=== PATIENT | male | born 1950 | race Caucasian/White ===

== ENCOUNTER → 2016-12-31 | Outpatient (CLI) | payer OTHER | LOC: GMAH 10:34 | PROVIDERS: ATTEND Family Medicine | DX: E78.2 Mixed hyperlipidemia (principal); Z12.5 Encounter for screening for malignant neoplasm of prostate | CPT/HCPCS: 84443; 84550; G0103 ==

== ENCOUNTER 2017-04-29 08:14 | Day surgery (SDC) | payer MEDICARE, OTHER ==
[~2017-04-29 08:14] MED LIST: LACTATED RINGERS 1,000 ML ONE; MIDAZOLAM INJ 2 MG/2 ML VIAL ONE; fentaNYL CITRATE INJ 50 MCG/ML AMP ONE
--- NOTE | 2017-04-29 08:30 | OP ---
DATE OF PROCEDURE: 04/29/17 PREPROCEDURE DIAGNOSIS: 1. History of polyps. 2. Surveillance colonoscopy. POSTPROCEDURE DIAGNOSIS: 1. Colonic polyps. 2. Diverticulosis. 3. Internal hemorrhoids. PROCEDURE: 1. Colonoscopy. SURGEON: Joe Dallas MD SEDATION: The patient was sedated via IV propofol by the Anesthesia Department. COMPLICATIONS: No immediate complications. CONSENT: Prior to the procedure, risks, benefits and alternatives to the therapy were discussed with the patient. The risks included bleeding, infection , perforation and . The patient agreed to the procedure and signed a consent. Preprocedure anesthesia assessment and examination revealed no contraindication to sedation. Airway examination demonstrated a Mallampati class 2, ASA grade assessment type 2. Throughout the procedure, the patient's blood pressure, pulse and oxygen saturation were monitored continuously. PROCEDURE: The patient was placed in the left lateral decubitus position and a rectal examination was performed. The rectal examination was within normal limits. The Olympus colonoscope was passed in the anus, rectum, traversing the colon to the level of the cecum as identified by the appendiceal orifice. The scope was retracted and the mucosa was visualized. The entirety of the exam was performed with direct visualization. Retroflexion was performed in the rectum. Preparation quality was good. The withdrawal time was greater than 6 minutes. The patient tolerated the procedure well. FINDINGS: 1. Three polyps were seen in the ascending colon. The polyps ranged from 5 to 7 mm in size. All polyps were resected through cold snare resection. The polyps were retrieved. No bleeding during or at the end of resection. 2. Diverticulosis was seen in the sigmoid and descending colon. 3. Large internal hemorrhoids were seen in the rectum through retroflexion. IMPRESSION: 1. Three colonic polyps, resected and retrieved. 2. Mild to moderate diverticulosis in the sigmoid colon. 3. Large, non-bleeding internal hemorrhoids. RECOMMENDATION: 1. Return home. 2. Restart diet. 3. Restart medications as prior. 4. Followup pathology results. 5. Repeat colonoscopy for surveillance in the next three years given the number of polyps if evidence of adenomatous tissue found. 6. Findings were discussed with the patient and family members. 7. Return to my clinic (Dr. Blanton) in case development of any GI symptoms or any additional questions. #[id number] [facility]
[2017-04-29 09:16] VITALS: BP 149/86; TEMP 98; O2SAT 97
[2017-04-29] MEDS ORDERED: LIDOCAINE 1% 10 ML VIAL INJ ONE (10:00)
[2017-04-29] MEDS ORDERED: PROPOFOL 200 MG/20 ML VIAL IV ONE (10:00)
== END 2017-04-29 09:10 | disposition home or self-care (01) ==
LOC: AMB 08:14
PROVIDERS: ATTEND Internal Medicine Gastroenterology
DX: Z12.11 Encounter for screening for malignant neoplasm of colon (principal); D12.2 Benign neoplasm of ascending colon; K57.30 Diverticulosis of large intestine without perforation or abscess without bleeding; K64.8 Other hemorrhoids; E78.00 Pure hypercholesterolemia, unspecified; I10 Essential (primary) hypertension; K21.9 Gastro-esophageal reflux disease without esophagitis; J44.9 Chronic obstructive pulmonary disease, unspecified; F17.200 Nicotine dependence, unspecified, uncomplicated; E66.9 Obesity, unspecified; Z86.010 Personal history of colon polyps; Z68.33 Body mass index [BMI] 33.0-33.9, adult; Z79.899 Other long term (current) drug therapy
CPT/HCPCS: 00810; 45385; 88305; J2250; J3010; J3490; J7120

== ENCOUNTER → 2018-04-06 | Outpatient (CLI) | payer MEDICARE, OTHER | LOC: GMAH 10:55 | PROVIDERS: ATTEND Family Medicine | DX: Z12.5 Encounter for screening for malignant neoplasm of prostate (principal); I10 Essential (primary) hypertension; E78.2 Mixed hyperlipidemia | CPT/HCPCS: 84443; 84550; G0103 ==

== ENCOUNTER → 2019-06-29 | Outpatient (CLI) | payer MEDICARE, OTHER | LOC: GMA MATASK 14:00 | PROVIDERS: ATTEND Family Medicine | DX: Z12.5 Encounter for screening for malignant neoplasm of prostate (principal); I10 Essential (primary) hypertension | CPT/HCPCS: 84550; G0103 ==

== ENCOUNTER → 2020-07-12 | Outpatient (CLI) | payer MEDICARE, OTHER | LOC: GMA MATASK 12:56 | PROVIDERS: ATTEND Family Medicine | DX: Z12.5 Encounter for screening for malignant neoplasm of prostate (principal); E03.9 Hypothyroidism, unspecified; I10 Essential (primary) hypertension | CPT/HCPCS: 84443; 84550; G0103 ==